=== PATIENT | male | born 1995 ===

== ENCOUNTER 2016-06-04 02:27 | Emergency (ER) | payer OTHER ==
[2016-06-04] MEDS ORDERED: Sodium Chloride 0.9% 1,000 ML IV SCH (03:00)
[2016-06-04 03:20] LABS: ADD MANUAL DIFF? NO
[2016-06-04 03:23] LABS: BASO # 0.03 K/mm3 (0.0-2.0); BASO % 0.3 % (0.0-3.0); EOS # 0.1 (0.0-0.7); EOS % 0.6 % (1.5-5.0); GRAN # 8.41 (1.4-6.5); GRAN % 82.1 % (50.0-68.0); HEMATOCRIT 49.1 % (42.0-52.0); LYMPH # 1.1 (1.2-3.4); LYMPH % 11.1 % (22.0-35.0); MEAN CELL VOLUME 83.9 fL (80.0-105.0); MEAN CORPUSCULAR HEMOGLOBIN 29.9 pg (25.0-35.0); MEAN CORPUSCULAR HGB CONC 35.6 g/dl (31.0-37.0); MEAN PLATELET VOLUME 9.3 fl (7.0-11.0); MONO # 0.6 (0.1-0.6); MONO % 5.9 % (1.0-6.0); PLATELET COUNT 279 10^3/uL (120.0-450.0); WHITE BLOOD COUNT 10.2 10^3/ul (4.5-11.0)
[2016-06-04 03:34] LABS: ALB/GLOB RATIO 1.3 (1.1-1.8); ALKALINE PHOSPHATASE 61 U/L (38-133); ALT/SGPT 42 U/L (7-56); AST/SGOT 32 U/L (15-59); BILIRUBIN,TOTAL 1.6 mg/dL (0.2-1.3); BLOOD UREA NITROGEN 19 mg/dL (7-21); CALCIUM 9.5 mg/dL (8.4-10.5); CARBON DIOXIDE 26 mmol/L (21-33); CHLORIDE 101 mmol/L (98-107); GFR AFRICAN-AMERICAN > 60; GLUCOSE,RANDOM 109 mg/dL (70-110); LIPASE 48 U/L (23-300); POTASSIUM 3.9 mmol/L (3.6-5.0); SODIUM 137 mmol/L (132-148); TOTAL PROTEIN 7.6 g/dL (5.8-8.3)
[2016-06-04] MEDS ORDERED: Iohexol 350 MG/100 ML VIAL ONE (03:48)
[2016-06-04 04:01] LABS: URINE BILIRUBIN NEGATIVE (NEGATIVE); URINE BLOOD NEGATIVE (NEGATIVE); URINE GLUCOSE (UA) NEGATIVE (NEGATIVE); URINE KETONE TRACE mg/dL (NEGATIVE); URINE LEUKOCYTE ESTERASE NEGATIVE Leu/uL (NEGATIVE); URINE PROTEIN TRACE mg/dL (<30 mg/dL); URINE UROBILINOGEN 0.2 E.U./dL (<1 E.U./dL)
[2016-06-04 04:02] LABS: URINE APPEARANCE CLEAR (CLEAR); URINE COLOR YELLOW (YELLOW)
[2016-06-04 04:09] LABS: URINE BACTERIA RARE (NEG); URINE EPITHELIAL CELLS 0 - 2 /hpf (0-5); URINE RBC 0 - 2 /hpf (0-2); URINE WBC 0 - 2 /hpf (0-6)
[2016-06-04 05:35] VITALS: BP 118/68; PULSE 78; RESP 17; TEMP 98; O2SAT 100
--- NOTE | 2016-06-04 05:35 | ED PDOC ---
Arrival/HPI - General Chief Complaint: Abdominal Pain Time Seen by Provider: 06/04/16 02:41 Historian: Patient - History of Present Illness Narrative History of Present Illness (Text): 06/04/16 05:38 Melvin Spencer is a 21 year old male who presents to the emergency department complaining of 2 day duration of abdominal pain. States that pain became worse today morning. Denies nausea, vomiting, or diarrhea. Denies fever, chills, headache, dizziness, urinary symptoms or any other complaints at this time. Time/Duration: < week (2 days ) Symptom Onset: Gradual Symptom Course: Worsening Severity Level: Mild Activities at Onset: Light Past Medical History - Provider Review Nursing Documentation Reviewed: Yes - Psychiatric Hx Substance Use: No Family/Social History - Physician Review Nursing Documentation Reviewed: Yes Family/Social History: No Known Family HX Smoking Status: y Hx Alcohol Use: No Hx Substance Use: No Allergies/Home Meds Allergies/Adverse Reactions: Allergies No Known Allergies Allergy (Verified 06/04/16 02:34) Home Medications: Home Meds Medication Instructions Recorded Confirmed No Known Home Med 06/04/16 06/04/16 Review of Systems - Physician Review All systems were reviewed & negative as marked: Yes - Review of Systems Constitutional: Normal. absent: Fatigue, Fevers Respiratory: Normal. absent: SOB, Cough, Sputum Cardiovascular: Normal. absent: Chest Pain, Palpitations Gastrointestinal: Abdominal Pain. absent: Constipation, Diarrhea, Nausea, Vomiting Neurological: Normal. absent: Headache, Dizziness Psychiatric: Normal Physical Exam Vital Signs Reviewed: Yes Vital Signs Temp Pulse Resp BP Pulse Ox 06/04/16 05:35 98 F 78 17 118/68 100 06/04/16 02:55 97.7 F 113 H 16 98 06/04/16 02:29 97.7 F 113 H 22 122/80 95 Temperature: Afebrile Blood Pressure: Normal Pulse: Tachycardic Respiratory Rate: Normal Appearance: Positive for: Well-Appearing, Non-Toxic, Comfortable Pain Distress: None Mental Status: Positive for: Alert and Oriented X 3 - Systems Exam Head: Present: Atraumatic, Normocephalic Pupils: Present: PERRL Conjunctiva: Present: Normal Respiratory/Chest: Present: Clear to Auscultation, Good Air Exchange. No: Respiratory Distress, Accessory Muscle Use Cardiovascular: Present: Regular Rate and Rhythm, Normal S1, S2. No: Murmurs Abdomen: Present: Tenderness (RLQ tenderness ), Normal Bowel Sounds. No: Distention, Peritoneal Signs Upper Extremity: Present: Normal Inspection. No: Cyanosis, Edema Lower Extremity: Present: Normal Inspection. No: Edema Neurological: Present: GCS=15, CN II-XII Intact, Speech Normal Skin: Present: Warm, Dry, Normal Color. No: Rashes Psychiatric: Present: Alert, Oriented x 3, Normal Insight, Normal Concentration Medical Decision Making ED Course and Treatment: 06/04/16 05:32 Impression: A 21 year old male who presents to the emergency department for evaluation of 2 day duration of worsening abdominal pain. Plan: -- CT abdomen pelvis -- Labs -- IV fluids -- Zofran -- Urinalysis -- Reassess and disposition Progress Notes: 06/04/16 05:34 CT abdomen pelvis reviewed: IMPRESSION: No definitive or acute CT findings to explain the patient's presentation Normal appendix No hydronephrosis or differential renal nephrogram.. Re-evaluation Time: 06:03 Reassessment Condition: Re-examined, Improved - Lab Interpretations Lab Results: 06/04/16 03:19 06/04/16 03:19 Lab Results 06/04/16 03:45: Urine Color Yellow, Urine Appearance Clear, Urine pH 6.0, Ur Specific Seffner 1.025, Urine Protein Trace H, Urine Glucose (UA) Negative, Urine Ketones Trace H, Urine Blood Negative, Urine Nitrate Negative, Urine Bilirubin Negative, Urine Urobilinogen 0.2, Ur Leukocyte Esterase Negative, Urine RBC 0 - 2, Urine WBC 0 - 2, Ur Epithelial Cells 0 - 2, Urine Bacteria Rare 06/04/16 03:19: WBC 10.2, RBC 5.85, Hgb 17.5, Hct 49.1, MCV 83.9, MCH 29.9, MCHC 35.6, RDW 13.0, Plt Count 279, MPV 9.3, Gran % 82.1 H, Lymph % (Auto) 11.1 L, [place] % (Auto) 5.9, Eos % (Auto) 0.6 L, Baso % (Auto) 0.3, Gran # 8.41 H, Lymph # 1.1 L, [place] # 0.6, Eos # 0.1, Baso # 0.03, Sodium 137, Potassium 3.9, Chloride 101, Carbon Dioxide 26, Anion Gap 14, BUN 19, Creatinine 1.1, Est GFR ( Amer) > 60, Est GFR (Non-Af Amer) > 60, Random Glucose 109, Calcium 9.5 , Total Bilirubin 1.6 H, AST 32, ALT 42, Alkaline Phosphatase 61, Total Protein 7.6, Albumin 4.3, Globulin 3.3, Albumin/Globulin Ratio 1.3, Lipase 48 I have reviewed the lab results: Yes - RAD Interpretation Narrative RAD Interpretations (Text): EXAM: CT Abdomen and Pelvis With Intravenous Contrast FINDINGS: Lower thorax: No acute findings. ABDOMEN: Liver: There is hepatomegaly and fatty infiltration of the liver. Gallbladder and bile ducts: Unremarkable. No calcified stones. No ductal dilation. Pancreas: Unremarkable. No mass. No ductal dilation. Spleen: Unremarkable. No splenomegaly. Adrenals: Unremarkable. No mass. Kidneys and ureters: No hydronephrosis or differential renal nephrogram. Stomach and bowel: Unremarkable. No obstruction. No mucosal thickening. Appendix: Normal appendix PELVIS: Bladder: The bladder is nondistended Reproductive: Unremarkable as visualized. ABDOMEN and PELVIS: Intraperitoneal space: Unremarkable. No free air. No significant fluid collection. Bones/joints: No acute fracture. No dislocation. Soft tissues: Unremarkable. Vasculature: Unremarkable. No abdominal aortic aneurysm. Lymph nodes: Unremarkable. No enlarged lymph nodes. IMPRESSION: No definitive or acute CT findings to explain the patient's presentation Normal appendix No hydronephrosis or differential renal nephrogram.. Radiology Orders: 06/04/16 02:50 ABD & PELVIS IV CONTRAST ONLY [CT] [employer] Consulting Services Manager: Radiologist - Medication Orders Current Medication Orders: Sodium Chloride (Sodium Chloride 0.9%) 1,000 mls @ 80 mls/hr IV .[id number] [facility] Last Admin: 06/04/16 03:08 Dose: 80 MLS/HR eMAR Start Stop Document 06/04/16 03:08 [email or web address] (Rec: 06/04/16 03:08 [email or web address] [id number]) Intravenous Solution Start Date 06/04/16 Start Time 03:08 End Date 06/04/16 Discontinued Medications Iohexol (Omnipaque 350 100 Ml) Confirm Administered Dose 350 mg .ROUTE .[facility] Stop: 06/04/16 03:49 Ondansetron HCl (Zofran Inj) 4 mg IVP STAT STA Stop: 06/04/16 02:51 Last Admin: 06/04/16 03:07 Dose: 4 MG IVP Administration Document 06/04/16 03:07 [email or web address] (Rec: 06/04/16 03:07 [email or web address] [id number]) Charges for Administration # of IVP Administrations 1 Disposition/Present on Arrival - Present on Arrival Any Indicators Present on Arrival: No History of DVT/PE: No History of Uncontrolled Diabetes: No Urinary Catheter: No History of Decub. Ulcer: No History Surgical Site Infection Following: None - Disposition Have Diagnosis and Disposition been Completed?: Yes Diagnosis: Abdominal pain Disposition: HOME/ ROUTINE Disposition Time: 06:04 Condition: GOOD Discharge Instructions (ExitCare): Acute Abdominal Pain (ED)
--- NOTE | 2016-06-04 11:21 | CT ---
PROCEDURE: CT Abdomen and Pelvis with contrast HISTORY: rlq pain COMPARISON: None. TECHNIQUE: Contrast dose: 100 cc of Omni 350 Radiation dose: Total exam DLP = 282 mGy-cm. This CT exam was performed using one or more of the following dose reduction techniques: Automated exposure control, adjustment of the mA and/or kV according to patient size, and/or use of iterative reconstruction technique. FINDINGS: LOWER THORAX: Unremarkable. LIVER: Unremarkable. No gross lesion or ductal dilatation. GALLBLADDER AND BILE DUCTS: Unremarkable. PANCREAS: Unremarkable. No gross lesion or ductal dilatation. SPLEEN: Unremarkable. ADRENALS: Unremarkable. No mass. KIDNEYS AND URETERS: Unremarkable. No hydronephrosis. No solid mass. VASCULATURE: Unremarkable. No aortic aneurysm. BOWEL: Unremarkable. No obstruction. No gross mural thickening. APPENDIX: Normal appendix. PERITONEUM: Unremarkable. No free fluid. No free air. LYMPH NODES: Unremarkable. No enlarged lymph nodes. BLADDER: Unremarkable. REPRODUCTIVE: Unremarkable. BONES: No acute fracture. OTHER FINDINGS: The report concurs with the preliminary [facility] report IMPRESSION: Unremarkable contrast enhanced CT of the abdomen and pelvis.
== END 2016-06-04 06:21 | disposition home or self-care (01) ==
LOC: ED 02:27
DX: R10.9 Unspecified abdominal pain (principal)
CPT/HCPCS: 74177; 80053; 81001; 83690; 85025; 96374; 99284; J2405; J7040; Q9967